=== PATIENT | female | born 1975 | race Caucasian/White ===

== ENCOUNTER 2023-07-28 13:21 | Outpatient (REF) | payer OTHER, SELFPAY ==
--- NOTE | 2023-07-28 13:27 | EMG_ITS ---
Chief complaint: Burning bilateral hands, left worse than right, on and off. She had breast biopsy then had complications from anesthesia. Complications included brain fog, dry eyes, and burning on her fingers. History of tingling on toes and feet, on and off, attributed previously to thyroid, per patient. Reason for referral: Evaluate for neuropathy Referred by: Dr. Annemarie Salmeron Procedure done: Bilateral upper extremities NCS/EMG Precautions and/or limitations: Difficulty tolerating test although she tried her best. The limb temperature was monitored continuously and remained between 32-36 degrees C during the performance of the NCS. Nerve Conduction Studies Anti Sensory Summary Table ?Stim Site NR Onset (ms) Norm Onset (ms) Peak (ms) Norm Peak (ms) O-P Amp (?V) Norm O-P Amp Site1 Site2 Delta-0 (ms) Dist (cm) Isai (m/s) Norm Isai (m/s) Left Median Anti Sensory (2nd Digit) Wrist ? 2.6 3.3 <3.6 46.6 >10 Wrist 2nd Digit 2.6 14.0 54 Right Median Anti Sensory (2nd Digit) Wrist ? 2.7 3.4 <3.6 43.7 >10 Wrist 2nd Digit 2.7 14.0 52 Right Radial Anti Sensory (Thumb) Forearm ? 1.5 2.0 <3.1 34.2 Forearm Thumb 1.5 0.0 Left Ulnar Anti Sensory (5th Digit) Wrist ? 2.7 3.3 <3.7 48.1 >15.0 Wrist 5th Digit 2.7 14.0 52 Right Ulnar Anti Sensory (5th Digit) Wrist ? 2.4 3.0 <3.7 43.0 >15.0 Wrist 5th Digit 2.4 14.0 58 Motor Summary Table ?Stim Site NR Onset (ms) Norm Onset (ms) O-P Amp (mV) Norm O-P Amp iAmp (mV) Amp (1st) (%) Site1 Site2 Delta-0 (ms) Dist (cm) Isai (m/s) Norm Isai (m/s) Left Median Motor (Abd Poll Brev) Wrist ? 3.2 <3.9 10.1 >4.5 12.7 100.0 Elbow Wrist 4.1 21.0 51 >45 Elbow ? 7.3 9.0 11.4 89.1 Right Median Motor (Abd Poll Brev) Wrist ? 3.4 <3.9 13.4 >4.5 16.6 100.0 Elbow Wrist 3.9 20.5 53 >45 Elbow ? 7.3 15.8 19.5 117.9 Left Ulnar Motor (Abd Dig Minimi) Wrist ? 2.5 <3.0 6.3 >5 7.7 100.0 B Elbow Wrist 3.2 20.0 63 >45 B Elbow ? 5.7 6.0 7.3 95.2 A Elbow B Elbow 1.6 10.0 63 >45 A Elbow ? 7.3 5.9 7.1 93.7 Right Ulnar Motor (Abd Dig Minimi) Wrist ? 3.0 <3.0 10.7 >5 13.0 100.0 B Elbow Wrist 3.4 21.0 62 >45 B Elbow ? 6.4 11.3 13.6 105.6 A Elbow B Elbow 1.3 10.0 77 >45 A Elbow ? 7.7 11.0 13.4 102.8 EMG ?Side Muscle Nerve Root Ins Act Fibs Psw Amp Dur Poly Recrt Int Pat Comment Right 1stDorInt Ulnar C8-T1 Nml Nml Nml Nml Nml 0 Nml Complete Right FlexCarRad Median C6-7 Nml Nml Nml Nml Nml 0 Nml Complete Right Biceps Musculocut C5-6 Nml Nml Nml Nml Nml 0 Nml Complete Right Triceps Radial C6-7-8 Nml Nml Nml Nml Nml 0 Nml Complete Right Deltoid Axillary C5-6 Nml Nml Nml Nml Nml 0 Nml Complete Left 1stDorInt Ulnar C8-T1 Nml Nml Nml Nml Nml 0 Nml Complete Left FlexCarRad Median C6-7 Nml Nml Nml Nml Nml 0 Nml Complete Left Biceps Musculocut C5-6 Nml Nml Nml Nml Nml 0 Nml Complete Left Triceps Radial C6-7-8 Nml Nml Nml Nml Nml 0 Nml Complete Left Deltoid Axillary C5-6 Nml Nml Nml Nml Nml 0 Nml Complete FINDINGS: All motor and sensory nerves tested on bilateral upper extremities showed normal latencies, amplitudes and conduction velocities. Concentric needle EMG was performed in selected muscles of the left upper extremity. Study did not reveal signs of electric abnormalities as shown in the table below. IMPRESSION: 1. This is a normal study. 2. There is no electrodiagnostic evidence for median neuropathy, ulnar neuropathy, brachial plexopathy, or cervical radiculopathy. Thank you for your kind referral. Birgit Durbin MD, HONEY Board Certified, [place] [employer] and [employer] (ABPMR) Board Certified, [place] [employer] Electrodiagnostic [employer] (ABEM) CODIN [id number] MTDD
== END 2023-07-28 13:22 | disposition home or self-care (01) ==
LOC: HO.NEURO 13:21
PROVIDERS: Visit Provider Internal Medicine
DX: R20.2 Paresthesia of skin (principal)
CPT/HCPCS: 95886; 95911

== ENCOUNTER → 2023-07-28 13:27 | Outpatient (BNV) | payer OTHER, SELFPAY | PROVIDERS: Visit Provider Physical Medicine & Rehabilitation | DX: R20.8 Other disturbances of skin sensation (principal); R94.131 Abnormal electromyogram [EMG]; M79.641 Pain in right hand; M79.642 Pain in left hand | CPT/HCPCS: 95886; 95911 ==